=== PATIENT | female | born 1990 | race American Indian/Alaskan Native ===

== ENCOUNTER 2017-12-06 16:40 | Emergency (ER) | payer SELFPAY ==
[2017-12-06] MEDS ORDERED: NACL 0.9% 1000 ML 1,000 ML IV ONE (16:51)
[2017-12-06 17:16] LABS: Hematocrit 35.3 % (30.3-42.9); Mean Corpuscular HGB Conc 34 % (30-34); Mean Corpuscular Hemoglobin 27 pg (28-32); Mean Corpuscular Volume 79 fl (79-97); Platelet Count 276 K/mm3 (140-440); Red Blood Count 4.46 M/mm3 (3.65-5.03); Red Cell Distribution Width 16.4 % (13.2-15.2)
[2017-12-06 17:34] LABS: Alanine Aminotransferase 8 units/L (7-56); Albumin 4.2 g/dL (3.9-5); BUN/Creatinine Ratio 18; Blood Urea Nitrogen 9 mg/dL (7-17); Calcium 9.6 mg/dL (8.4-10.2); Hemolysis Index 4; Lipase 27 units/L (13-60)
[2017-12-06 17:54] LABS: Bacteria,Urine 2+ /HPF (Negative); Bilirubin,Urine NEG (Negative); Blood,Urine NEG (Negative); Color,Urine Yellow (Yellow); HCG Qualitative,Urine Positive (Negative); Mucus,Urine 3+ /HPF
[2017-12-06 19:04] LABS: Basophils % (Manual) 0 % (0.0-1.8); Total Cells Counted 100
[2017-12-06 19:05] LABS: Giant Platelets Few; Ovalocytes 2+; Poikilocytosis Few
[2017-12-06 19:06] LABS: Large Platelets Few; Platelet Estimate Consistent w Auto
--- NOTE | 2017-12-06 19:49 | Emergency Department Report ---
ED Female HPI - General Chief complaint: Abdominal Pain Stated complaint: SEVERE HEAD ACHE/VOMIT/PAIN Time Seen by Provider: 12/06/17 19:24 Source: patient Mode of arrival: Ambulatory Limitations: No Limitations - History of Present Illness Initial comments: Patient 27-year-old -[place] female she is a A0 Yousif presents for abdominal pain with nausea and vomiting since last nausea and vomiting was patient tolerating by mouth intake without nausea or vomiting past 3 days presents today for dysuria frequency urgency no fever no chills no more nausea vomiting does endorse abdominal cramps last menstrual period 2 months ago patient endorses I think I'm Complaint: dysuria Onset/Timin -: days(s) Location: suprapubic Radiation: suprapubic Severity: moderate Severity scale (0 -10): 3 Quality: cramping Consistency: intermittent Improves with: none Worsens with: urination Are you Now?: Yes Last Menstrual Period: 09/29/17 EDC: 07/06/18 Associated Symptoms: abdominal pain, nausea/vomiting, dysuria. denies: vaginal discharge, vaginal bleeding, fever/chills, headaches, loss of appetite, hematuria, rash, shortness of breath, syncope, weakness - Related Data Sexually active: Yes : 1 Para: 1 A: 0 Previous Rx's Medication Instructions Recorded Last Taken Type Acetaminophen [Tylenol] 650 mg PO QID PRN #30 capsule 12/06/17 Unknown Rx Cephalexin [Keflex] 500 mg PO BID 10 Days #20 capsule 12/06/17 Unknown Rx Ondansetron [Zofran Odt] 4 mg PO TID PRN #15 tab.rapdis 12/06/17 Unknown Rx Allergies Allergy/AdvReac Type Severity Reaction Status Date / Time No Known Allergies Allergy Unverified 12/06/17 16:51 ED Review of Systems ROS: Stated complaint: SEVERE HEAD ACHE/VOMIT/PAIN Other details as noted in HPI Constitutional: denies: chills, fever Eyes: denies: eye pain, eye discharge, vision change ENT: denies: ear pain, throat pain Respiratory: denies: cough, shortness of breath, wheezing Cardiovascular: denies: chest pain, palpitations Endocrine: no symptoms reported Gastrointestinal: abdominal pain, nausea. denies: diarrhea, constipation, hematemesis, melena, hematochezia Genitourinary: urgency, dysuria. denies: hematuria, discharge, abnormal menses , dyspareunia Musculoskeletal: denies: back pain, joint swelling, arthralgia Skin: denies: rash, lesions Neurological: denies: headache, weakness, paresthesias Psychiatric: denies: anxiety, depression Hematological/Lymphatic: denies: easy bleeding, easy bruising ED Past Medical Hx - Past Medical History Hx Hypertension: Yes - Social History Smoking Status: Never Smoker Substance Use Type: Marijuana - Medications Home Medications: Home Medications Medication Instructions Recorded Confirmed Last Taken Type Acetaminophen [Tylenol] 650 mg PO QID PRN #30 capsule 12/06/17 Unknown Rx Cephalexin [Keflex] 500 mg PO BID 10 Days #20 capsule 12/06/17 Unknown Rx Ondansetron [Zofran Odt] 4 mg PO TID PRN #15 tab.rapdis 12/06/17 Unknown Rx ED Physical Exam - General Limitations: No Limitations General appearance: alert, in no apparent distress - Head Head exam: Present: atraumatic, normocephalic - Eye Eye exam: Present: normal appearance - ENT ENT exam: Present: mucous membranes moist - Neck Neck exam: Present: normal inspection - Respiratory Respiratory exam: Present: normal lung sounds bilaterally. Absent: respiratory distress - Cardiovascular Cardiovascular Exam: Present: regular rate - GI/Abdominal GI/Abdominal exam: Present: soft, normal bowel sounds. Absent: distended, tenderness, guarding, rebound, rigid, bruit, hernia - Expanded GI/Abdominal Exam Expanded GI/Abdominal exam: Absent: obturator sign, heel tap sign, Figueredo's sign, Rovsing 's sign, tenderness at Mcburney's Point, ascites - Rectal Rectal exam: Present: deferred - External exam: Present: other (deferred per patient ) - Extremities Exam Extremities exam: Present: normal inspection - Back Exam Back exam: Present: normal inspection - Neurological Exam Neurological exam: Present: alert, oriented X3, normal gait - Psychiatric Psychiatric exam: Present: normal affect - Skin Skin exam: Present: warm, dry, intact, normal color. Absent: rash ED Course Vital Signs 12/06/17 16:46 Temperature 97.8 F Pulse Rate 92 H Respiratory 18 Rate Blood Pressure 129/87 ED Medical Decision Making - Lab Data Result diagrams: 12/06/17 17:04 12/06/17 17:04 Laboratory Tests 12/06/17 12/06/17 12/06/17 17:04 17:04 17:11 WBC 10.5 RBC 4.46 Hgb 12.0 Hct 35.3 MCV 79 MCH 27 L MCHC 34 RDW 16.4 H Plt Count 276 Add Manual Diff Complete Total Counted 100 Seg Neuts % (Manual) 63.0 Band Neutrophils % 0 Lymphocytes % (Manual) 30.0 Reactive Lymphs % (Man) 0 Monocytes % (Manual) 4.0 Eosinophils % (Manual) 2.0 Basophils % (Manual) 0 Metamyelocytes % 1.0 Myelocytes % 0 Promyelocytes % 0 Blast Cells % 0 Nucleated RBC % Not Reportable Seg Neutrophils # Man 6.6 Band Neutrophils # 0.0 Lymphocytes # (Manual) 3.2 Abs React Lymphs (Man) 0.0 Monocytes # (Manual) 0.4 Eosinophils # (Manual) 0.2 Basophils # (Manual) 0.0 Metamyelocytes # 0.1 Myelocytes # 0.0 Promyelocytes # 0.0 Blast Cells # 0.0 WBC Morphology Not Reportable Hypersegmented Neuts Not Reportable Hyposegmented Neuts Not Reportable Hypogranular Neuts Not Reportable Smudge Cells Not Reportable Toxic Granulation Not Reportable Toxic Vacuolation Not Reportable Dohle Bodies Not Reportable Pelger-Huet Anomaly Not Reportable Carline Rods Not Reportable Platelet Estimate Consistent w auto Clumped Platelets Not Reportable Plt Clumps, EDTA Not Reportable Large Platelets Few Giant Platelets Few Platelet Satelliting Not Reportable Plt Morphology Comment Not Reportable RBC Morphology Not Reportable Dimorphic RBCs Not Reportable Polychromasia Not Reportable Hypochromasia Not Reportable Poikilocytosis Few Anisocytosis Not Reportable Microcytosis Not Reportable Macrocytosis Not Reportable Spherocytes Not Reportable Pappenheimer Bodies Not Reportable Sickle Cells Not Reportable Target Cells Not Reportable Tear Drop Cells Not Reportable Ovalocytes 2+ Helmet Cells Not Reportable Delgado-Flournoy Bodies Not Reportable [place] Rings Not Reportable Rebecca Cells Not Reportable Bite Cells Not Reportable Crenated Cell Not Reportable Elliptocytes Not Reportable Acanthocytes (Spur) Not Reportable Rouleaux Not Reportable Hemoglobin C Crystals Not Reportable Schistocytes Not Reportable Malaria parasites Not Reportable Frankie Bodies Not Reportable Hem Pathologist Commnt No Sodium 135 L Potassium 4.0 Chloride 101.2 Carbon Dioxide 23 Anion Gap 15 BUN 9 Creatinine 0.5 L Estimated GFR > 60 BUN/Creatinine Ratio 18 Glucose 86 Calcium 9.6 Total Bilirubin 0.20 AST 14 ALT 8 Alkaline Phosphatase 78 Total Protein 7.8 Albumin 4.2 Albumin/Globulin Ratio 1.2 Lipase 27 HCG, Quant Urine Color Yellow Urine Turbidity Slightly-cloudy Urine pH 6.0 Ur Specific Marks 1.029 Urine Protein 30 mg/dl Urine Glucose (UA) Neg Urine Ketones Neg Urine Blood Neg Urine Nitrite Neg Urine Bilirubin Neg Urine Urobilinogen 4.0 Ur Leukocyte Esterase Mod Urine WBC (Auto) 5.0 Urine RBC (Auto) 2.0 U Epithel Cells (Auto) 11.0 Urine Bacteria (Auto) 2+ Urine Mucus 3+ Urine HCG, Qual Positive A 12/06/17 18:39 WBC RBC Hgb Hct MCV MCH MCHC RDW Plt Count Add Manual Diff Total Counted Seg Neuts % (Manual) Band Neutrophils % Lymphocytes % (Manual) Reactive Lymphs % (Man) Monocytes % (Manual) Eosinophils % (Manual) Basophils % (Manual) Metamyelocytes % Myelocytes % Promyelocytes % Blast Cells % Nucleated RBC % Seg Neutrophils # Man Band Neutrophils # Lymphocytes # (Manual) Abs React Lymphs (Man) Monocytes # (Manual) Eosinophils # (Manual) Basophils # (Manual) Metamyelocytes # Myelocytes # Promyelocytes # Blast Cells # WBC Morphology Hypersegmented Neuts Hyposegmented Neuts Hypogranular Neuts Smudge Cells Toxic Granulation Toxic Vacuolation Dohle Bodies Pelger-Huet Anomaly Carline Rods Platelet Estimate Clumped Platelets Plt Clumps, EDTA Large Platelets Giant Platelets Platelet Satelliting Plt Morphology Comment RBC Morphology Dimorphic RBCs Polychromasia Hypochromasia Poikilocytosis Anisocytosis Microcytosis Macrocytosis Spherocytes Pappenheimer Bodies Sickle Cells Target Cells Tear Drop Cells Ovalocytes Helmet Cells Delgado-Flournoy Bodies [place] Rings [place] Cells Bite Cells Crenated Cell Elliptocytes Acanthocytes (Spur) Rouleaux Hemoglobin C Crystals Schistocytes Malaria parasites Frankie Bodies Hem Pathologist Commnt Sodium Potassium Chloride Carbon Dioxide Anion Gap BUN Creatinine Estimated GFR BUN/Creatinine Ratio Glucose Calcium Total Bilirubin AST ALT Alkaline Phosphatase Total Protein Albumin Albumin/Globulin Ratio Lipase HCG, Quant 40691 H Urine Color Urine Turbidity Urine pH Ur Specific Marks Urine Protein Urine Glucose (UA) Urine Ketones Urine Blood Urine Nitrite Urine Bilirubin Urine Urobilinogen Ur Leukocyte Esterase Urine WBC (Auto) Urine RBC (Auto) U Epithel Cells (Auto) Urine Bacteria (Auto) Urine Mucus Urine HCG, Qual - Radiology Data Radiology results: report reviewed, image reviewed Single living intrauterine gestation visualized gestational age is 8 weeks 1 day small subchorionic hemorrhage small left ovarian cyst - Medical Decision Making Ultrasound noted intact 8 weeks and 1 day is too small for heart small subchorionic chorionic hemorrhage left ovarian cyst plan pelvic rest and follow up with DIRECTOR NEWS in 2 days Keflex by mouth twice a day for 10 days for UTI return the ED should symptoms worsen or spotting or bleeding is absolutely no bleeding no cramping no nausea vomiting no fever no pain at this time patient will be DC'd home in stable condition at this time patient and verbalized agreement and understanding with this discharge plan. Critical care attestation.: If time is entered above; I have spent that time in minutes in the direct care of this critically ill patient, excluding procedure time. ED Disposition Clinical Impression: Abdominal pain affecting , Nausea and vomiting in Subchorionic hemorrhage in first trimester Qualifiers: Fetus number: single or unspecified fetus Qualified Code(s): O41.8X10 - Other specified disorders of amniotic fluid and membranes, first trimester, not applicable or unspecified; O46.8X1 - Other antepartum hemorrhage, first trimester UTI (urinary tract infection) during Qualifiers: Trimester: first trimester Qualified Code(s): O23.41 - Unspecified infection of urinary tract in , first trimester Disposition: DC-01 TO HOME OR SELFCARE Is pt being admited?: No Does the pt Need Aspirin: No Condition: Stable Instructions: Abdominal Pain (ED), Urinary Tract Infection in Women (ED), Threatened Miscarriage (ED), Acute Nausea and Vomiting (ED) Additional Instructions: * When should you call for help? Subchorionic Hematoma: Care Instructions Skip to the navigation Your Care Instructions A subchorionic hematoma or hemorrhage is bleeding under one of the membranes ( chorion) that surrounds the embryo inside the uterus. It is a common cause of bleeding in early . The main symptom is vaginal bleeding. But some women don't have symptoms. They may find out they have a hematoma during an ultrasound test. In most cases, the bleeding goes away on its own. Most women go on to have a healthy baby. But in some cases, the bleeding is a sign of a miscarriage or other problem with the . Your doctor may want to do a follow-up ultrasound. Follow-up care is a warren part of your treatment and safety. Be sure to make and go to all appointments, and call your doctor or nurse call line if you are having problems. It's also a good idea to know your test results and keep a list of the medicines you take. How can you care for yourself at home? * Keep track of any bleeding, and follow the guidelines for when to call your doctor. * Keep in mind that some bleeding during the first trimester or an abnormal finding on an ultrasound may: * Not cause any problems for you or the baby. * outside food server to be something more serious. But if this happens, it's best to find out early. Then you and your doctor can manage any complications sooner rather than later. When should you call for help? Call 911 anytime you think you may need emergency care. For example, call if: * You have sudden, severe pain in your belly or pelvis. * You passed out (lost consciousness). * You have severe vaginal bleeding. Call your doctor now or seek immediate medical care if: * You are dizzy or light-headed, or you feel like you may faint. * You have new or increased pain in your belly or pelvis. * You have new or more vaginal bleeding. * You have pain in the vaginal area. * You have a fever. * You think you may have passed tissue. Save any tissue that you pass. Take it to your doctor's office as soon as you can. Watch closely for changes in your health, and be sure to contact your doctor if: * You have new or worse vaginal symptoms, such as pain, itching, or a discharge. * You do not get better as expected. For 07/10 nurse advice and general health information call [facility] at [phone]. Current as of: February 04, 2017 Author: [employer] Medical Review: Malka Zee MD - Family Medicine & Alisa Og MD - Obstetrics and Gynecology Prescriptions: Acetaminophen [Tylenol] 650 mg PO QID PRN #30 capsule PRN Reason: pain Cephalexin [Keflex] 500 mg PO BID 10 Days #20 capsule Ondansetron [Zofran Odt] 4 mg PO TID PRN #15 tab.rapdis PRN Reason: Nausea And Vomiting Referrals: PRIMARY CARE, [Primary Care Provider] - 3-5 Days Forms: Work/School Release Form(ED) Time of Disposition: 21:26
--- NOTE | 2017-12-06 21:15 | Ultrasound Report ---
FINAL REPORT PROCEDURE: US OB < = 14 WEEKS FETUS TECHNIQUE: Real-time transabdominal sonography of the uterus, placenta, amniotic fluid, adnexa, and fetus was performed with image documentation. Measurements were obtained to determine age/size. M-mode Doppler was used to document heartbeat. CPT 26233 HISTORY: abd pain pos preg COMPARISON: No prior studies are available for comparison. FINDINGS: Report for this exam was generated using images from both the transabdominal and the transvaginal OB ultrasound both of which were performed today. Single living intrauterine gestation visualized currently in variable presentation. heart rate of 165 beats per minute is detected. Yolk sac and pole are visualized. Small subchorionic fluid collection visualized suggesting small subchorionic hemorrhage. This measures approximately 12 millimeters x 3.5 millimeters. Fetus currently too small to accurately assess anatomy. No gross abnormality is visualized. Lower [place]-rump length measurement 16.5 millimeters corresponds to an age of 8 weeks 1 day. Small cyst visualized in the left ovary measuring 11.7 millimeters suggesting corpus luteum cyst of . Right and left ovaries otherwise are unremarkable. No free fluid is seen in the cul-de-sac. IMPRESSION: Single living intrauterine gestation visualized. By crown-rump length measurement estimated age is 8 week 1 day. Fetus currently too small to assess anatomy. No gross abnormality is seen. Follow-up exam suggested 18-20 weeks to evaluate anatomy. Small subchorionic hemorrhage visualized. Small cystic area visualized left ovary suggesting corpus luteum cyst of .
--- NOTE | 2017-12-06 21:17 | Ultrasound Report ---
FINAL REPORT PROCEDURE: US OB TRANSVAGINAL TECHNIQUE: Real-time transvaginal sonography of the uterus, placenta, amniotic fluid, adnexa, and fetus was performed with image documentation. Measurements were obtained to determine age/size. M-mode Doppler was used to document heartbeat. CPT 52304 HISTORY: abd pain pos preg COMPARISON: Transabdominal OB ultrasound also performed today. FINDINGS: Report for this exam was generated using images from both the transabdominal and the transvaginal OB ultrasound both of which were performed today. Single living intrauterine gestation visualized currently in variable presentation. heart rate of 165 beats per minute is detected. Yolk sac and pole are visualized. Small subchorionic fluid collection visualized suggesting small subchorionic hemorrhage. This measures approximately 12 millimeters x 3.5 millimeters. Fetus currently too small to accurately assess anatomy. No gross abnormality is visualized. [place]-rump length measurement 16.5 millimeters corresponds to an age of 8 weeks 1 day. Small cyst visualized in the left ovary measuring 11.7 millimeters suggesting corpus luteum cyst of . Right and left ovaries otherwise are unremarkable. No free fluid is seen in the cul-de-sac. IMPRESSION: Single living intrauterine gestation visualized. By crown-rump length measurement estimated age is 8 week 1 day. Fetus currently too small to assess anatomy. No gross abnormality is seen. Follow-up exam suggested 18-20 weeks to evaluate anatomy. Small subchorionic hemorrhage visualized. Small cystic area visualized left ovary suggesting corpus luteum cyst of .
[2017-12-06 21:42] VITALS: BP 136/76
== END 2017-12-06 21:40 | disposition home or self-care (01) ==
LOC: ED 16:40
DX: O41.8X10 Other specified disorders of amniotic fluid and membranes, first trimester, not applicable or unspecified (principal); O23.41 Unspecified infection of urinary tract in pregnancy, first trimester; O46.8X1 Other antepartum hemorrhage, first trimester; O16.1 Unspecified maternal hypertension, first trimester; F12.10 Cannabis abuse, uncomplicated; Z3A.08 8 weeks gestation of pregnancy
CPT/HCPCS: 36415; 76801; 76817; 80053; 81001; 81025; 83690; 84702; 85007; 85025; 99284